=== PATIENT | male | born 1965 | race Caucasian/White ===

== ENCOUNTER 2023-01-26 12:42 | Emergency (ER) | payer OTHER ==
[~2023-01-26] VITALS: Ht 185.4 cm; Wt 122.5 kg
[~2023-01-26 12:42] MED LIST: LISI20TA30 PO
[2023-01-26 12:50] VITALS: BP_SYST 149; PULSE 68; RESP 16; TEMP 97.8; O2SAT 95
[2023-01-26 13:20] LABS: BASOPHILS # (AUTO) 0.1 K/uL (0.0-0.2); BASOPHILS % (AUTO) 1.2 % (0.0-2.0); EOSINOPHILS # (AUTO) 0.6 K/uL (0.0-0.4); HEMATOCRIT 45.4 % (36-54); HEMOGLOBIN 15.5 g/dL (14.0-18.0); LYMPHOCYTES # (AUTO) 2.4 K/uL (1.0-5.5); LYMPHOCYTES % (AUTO) 24.7 % (20.5-51.5); MEAN CORPUSCULAR HEMOGLOBIN 31 pg (27-31); MEAN CORPUSCULAR HGB CONC 34 % (32-36); MEAN CORPUSCULAR VOLUME 90 fL (79.0-98.0); MONOCYTES # (AUTO) 0.8 K/uL (0.0-1.0); MONOCYTES % (AUTO) 8.5 % (1.7-9.3); NEUTROPHILS # (AUTO) 5.7 K/uL (1.8-7.7); NEUTROPHILS % (AUTO) 59.6 % (40.0-70.0); PLATELET COUNT (AUTO) 168 K/uL (130-430); RED BLOOD CELL COUNT(AUTO) 5.05 MIL/uL (4.2-6.2); RED CELL DISTRIBUTION WIDTH 12.3 % (9.0-15.0); WHITE BLOOD COUNT (AUTO) 9.6 K/uL (4.8-10.8)
[2023-01-26 13:30] LABS: ANION GAP 8 (5-15); CALCIUM 8.6 mg/dL (8.4-11.0); CARBON DIOXIDE 29 mmol/L (23-29); CHLORIDE 102 mmol/L (98-107); CREATININE 1.15 mg/dL (0.55-1.30); GFR AFRICAN AMERICAN 85 mL/min (>90); GLUCOSE 97 mg/dL (74-106); POTASSIUM 3.3 mmol/L (3.5-5.1); SODIUM SERUM 139 mmol/L (136-145); UREA NITROGEN, BLOOD 13 mg/dL (8-21)
[2023-01-26 13:37] LABS: ALANINE AMINOTRANSFERASE 33 U/L (12-78); ALBUMIN 3.3 g/dL (3.4-4.8); ASPARTATE AMINOTRANSFERASE 21 U/L (10-37); TOTAL BILIRUBIN 0.7 mg/dL (0.0-1.0); TOTAL PROTEIN, SERUM 6.8 g/dL (6.4-8.3)
[2023-01-26 13:38] LABS: GFR NON AFRICAN-AMERICAN 70 mL/min (>90)
[2023-01-26 16:13] VITALS: BP_SYST 141; PULSE 66; RESP 16; TEMP 97.9; O2SAT 96
[2023-01-26] MEDS ORDERED: MAGNESIUM OXIDE 400 MG TABLET PO ONE (16:45)
[2023-01-26] MEDS ORDERED: MAGNESIUM CHLORIDE 64 MG TABLET.DR PO ONE (16:45)
[2023-01-26] MEDS ORDERED: IBUPROFEN 800 MG TABLET PO ONE (16:45)
[2023-01-26] MEDS ORDERED: POTASSIUM CHLORIDE 20 MEQ/PKT PACKET PO ONE (16:45)
[2023-01-26] MEDS ORDERED: POTASSIUM CHLORIDE 20 MEQ TAB.PRT.SR ONE (16:57)
== END 2023-01-26 17:04 | disposition home or self-care (01) ==
LOC: SED 12:42
DX: R07.9 Chest pain, unspecified (principal); I10 Essential (primary) hypertension; Z79.899 Other long term (current) drug therapy
CPT/HCPCS: 36415; 71045; 80053; 84484; 85025; 93005; 99285